=== PATIENT | male | born 1945 | race Hispanic/Latino ===

== ENCOUNTER → 2017-12-26 | Day surgery (SDC) | payer OTHER ==
[2017-12-25 14:27] LABS: BASOPHILS # (AUTO) 0.1 (0.0-0.1); BASOPHILS % 0.9 % (0.0-1.0); EOSINOPHILS # (AUTO) 0.3 (0.0-0.4); EOSINOPHILS % 3.3 % (0.0-6.0); HEMOGLOBIN 14.8 g/dL (14.0-18.0); LYMPHOCYTES # (AUTO) 1.4 (1.0-3.2); LYMPHOCYTES % 14.9 % (18.0-39.1); MEAN CORPUSCULAR HEMOGLOBIN 28.1 pg (28-32); MEAN CORPUSCULAR HGB CONC 32.9 g/dL (31-35); MEAN CORPUSCULAR VOLUME 85.6 fL (81-99); MONOCYTES # (AUTO) 0.8 (0.2-0.8); MONOCYTES % 8.5 % (4.4-11.3); NEUTROPHILS # (AUTO) 6.7 (2.1-6.9); NEUTROPHILS % 71.7 % (38.7-80.0); PLATELET COUNT 220 x10e3/uL (140-360); RED BLOOD COUNT 5.26 x10e6/uL (4.3-5.7); RED CELL DISTRIBUTION WIDTH 13.9 % (11.7-14.4)
[2017-12-25 14:34] LABS: INR 0.9
[2017-12-25 14:49] LABS: ALANINE AMINOTRANSFERASE 22 IU/L (0-55); ALBUMIN/GLOBULIN RATIO 1.3 (0.8-2.0); ALKALINE PHOSPHATASE 48 IU/L (40-150); ANION GAP 14.2 mmol/L (8-16); BLOOD UREA NITROGEN 15 mg/dL (7-26); BUN/CREATININE RATIO 14 (6-25); CARBON DIOXIDE 29 mmol/L (22-29); CHLORIDE 100 mmol/L (98-107); CHOL/HDL RATIO 5.4 (3.9-4.7); CHOLESTEROL 194 MD/DL (0-199); CREATININE, SERUM 1.07 mg/dL (0.72-1.25); EST GLOMERULAR FILTRATION RATE > 60 ML/MIN (60-); GLUCOSE 135 mg/dL (74-118); HDL CHOLESTEROL 36 MG/DL (40-60); LDL CHOLESTEROL 118 MG/DL (60-130); POTASSIUM 4.2 mmol/L (3.5-5.1); SODIUM 139 mmol/L (136-145); TRIGLYCERIDES 201 MG/DL (0-149)
[2017-12-26] VITALS (11 sets, daily range): BP systolic 123–158; BP diastolic 58–76
[~2017-12-26] MED LIST: ALPRAZOLAM 0.5 MG TAB ONE; ATORVASTATIN CA20 MG PO; CARVEDILOL12.5 MG PO; DIPHENHYDRAMINE HCL 25 MG CAP ONE; DOXEPIN; DOXEPIN HCL TOP; FENOFIBRATE145 MG PO; FENTANYL CITRATE/PF 100MCG/2 ML INJ ONE; GABAPENTIN300 MG PO; HEPARIN SOD (PORCINE) 1000 UNIT/ML 30ML ONE; HEPARIN SOD/SOD CHLORIDE 2,000 ML ONE; HYDROCHLOROTHIA25 MG PO; IOPAMIDOL 300MG/ML 100 ML INFUS..BTL IV ONE; LIDOCAINE HCL 1% LOCAL INJ 20 ML VIAL ONE; LISINOPRIL10 MG PO; METFORMIN HCL500 MG PO; MIDAZOLAM HCL 2 MG/2 ML VIAL ONE; NITROGLYCERIN/D5W 200 MCG/ML 250 ML ONE; SODIUM CHLORIDE 0.9% 1000ML 1,000 ML ONE; SYNTHROID100 MCG PO
--- NOTE | 2017-12-26 14:06 | Operative Report ---
DATE OF PROCEDURE: December 26, 2017 INDICATIONS 1. Chest pain. 2. Coronary artery disease. 3. Previous bypass. 4. Abnormal stress test with anterior ischemia. 5. Peripheral arterial disease with claudication. PROCEDURES PERFORMED 1. Left heart catheterization, selective coronary angiography. 2. Selective cannulation of 1 arterial and 2 venous bypass conduits. 3. Abdominal aortogram with aorta catheter placement. 4. Third-order catheter placement from the right femoral artery to the left superficial femoral artery and bilateral extremity angiograms. 5. Deployment of right groin Perclose closure device. COMPLICATIONS: None. RECOMMENDATIONS: Aggressive medical therapy. Access was obtained in the right femoral artery. A 6-Martiniquais sheath was placed. Diagnostic coronary angiogram revealed patent left main. Left anterior descending artery is completely occluded. Circumflex had 50% stenosis. Right coronary artery was completely occluded in its midportion after the region of a large acute marginal branch which supplied collaterals to the right posterior descending artery. Right posterior descending artery also had feeble collaterals from the circumflex system. Left internal mammary artery was widely patent. Left anterior descending artery saphenous vein bypass graft to obtuse marginal widely patent. Saphenous vein bypass graft to diagonal artery had moderate 50% stenosis. Right coronary bypass graft was not identified. LV end-diastolic pressure of 40. No gradient across the aortic valve on pullback. Abdominal aorta demonstrated patent iliacs, renal arteries and aorta. Selective catheter placement from the right femoral artery to the left superficial femoral artery was performed with mild peripheral arterial disease and 2-vessel runoff in both lower extremities. Right groin repaired using Perclose. Patient discharged home same day. Job#: [id number]
== END | disposition home or self-care (01) ==
LOC: CATH LAB 07:36
PROVIDERS: ATTEND Internal Medicine Interventional Cardiology
DX: I25.708 Atherosclerosis of coronary artery bypass graft(s), unspecified, with other forms of angina pectoris (principal); R94.39 Abnormal result of other cardiovascular function study; I70.213 Atherosclerosis of native arteries of extremities with intermittent claudication, bilateral legs; I10 Essential (primary) hypertension; Z95.1 Presence of aortocoronary bypass graft; E78.00 Pure hypercholesterolemia, unspecified; E13.8 Other specified diabetes mellitus with unspecified complications; E07.9 Disorder of thyroid, unspecified; Z01.812 Encounter for preprocedural laboratory examination; Z79.84 Long term (current) use of oral hypoglycemic drugs; Z68.39 Body mass index [BMI] 39.0-39.9, adult; Z82.49 Family history of ischemic heart disease and other diseases of the circulatory system
CPT/HCPCS: 36247; 36415; 75625; 75716; 80053; 80061; 85025; 85610; 93459; C1725; C1769 ×2; J1644; J2001; J2250; J7030; 36217; 93458; Q9967

== ENCOUNTER → 2019-11-28 | Day surgery (SDC) | payer MEDICARE, OTHER ==
[2019-11-25 10:40] LABS: BASOPHILS # (AUTO) 0.1 (0.0-0.1); BASOPHILS % 0.8 % (0.0-1.0); EOSINOPHILS # (AUTO) 0.4 (0.0-0.4); EOSINOPHILS % 5.8 % (0.0-6.0); HEMATOCRIT 44.4 % (38.2-49.6); HEMOGLOBIN 14.2 g/dL (14.0-18.0); LYMPHOCYTES # (AUTO) 0.9 (1.0-3.2); LYMPHOCYTES % 12.6 % (18.0-39.1); MEAN CORPUSCULAR VOLUME 87.4 fL (81-99); MONOCYTES # (AUTO) 0.5 (0.2-0.8); MONOCYTES % 6.9 % (4.4-11.3); NEUTROPHILS # (AUTO) 5.2 (2.1-6.9); NEUTROPHILS % 72.8 % (38.7-80.0); PLATELET COUNT 209 x10e3/uL (140-360); RED BLOOD COUNT 5.08 x10e6/uL (4.3-5.7); RED CELL DISTRIBUTION WIDTH 13.1 % (11.7-14.4)
[2019-11-25 10:56] LABS: ALANINE AMINOTRANSFERASE 19 IU/L (0-55); ALBUMIN 4.4 g/dL (3.5-5.0); ALBUMIN/GLOBULIN RATIO 1.7 (0.8-2.0); ALKALINE PHOSPHATASE 51 IU/L (40-150); ANION GAP 14.2 mmol/L (8-16); BLOOD UREA NITROGEN 16 mg/dL (7-26); BUN/CREATININE RATIO 14 (6-25); CARBON DIOXIDE 28 mmol/L (22-29); CHLORIDE 101 mmol/L (98-107); CREATININE, SERUM 1.11 mg/dL (0.72-1.25); EST GLOMERULAR FILTRATION RATE > 60 ML/MIN (60-); GLUCOSE 162 mg/dL (74-118); POTASSIUM 4.2 mmol/L (3.5-5.1); SODIUM 139 mmol/L (136-145)
[2019-11-28] VITALS (12 sets, daily range): BP systolic 112–167; BP diastolic 62–82
[~2019-11-28] VITALS: Ht 170.2 cm; Wt 105.7 kg
[~2019-11-28] MED LIST changes: +ASPIRIN 325 MG TAB ONE; +ASPIRIN EC81 MG PO; +CLOPIDOGREL75 MG PO; +CRESTOR10 MG PO; +FUROSEMIDE40 MG PO; -LIDOCAINE HCL 1% LOCAL INJ 20 ML VIAL ONE; +LIDOCAINE HCL 2% LOCAL 20 ML VIAL ONE; +PRASUGREL 10 MG TAB ONE; +RANOLAZINE ER1000 MG PO
--- NOTE | 2019-11-28 08:12 | NUR ---
0812am RECEIVING NOTE [facility] [employer]............................................................... Bedside report received from ROSE MARY [place]. Identifierx2. Alert oriented and appropriate, PERRLA, respirations even and unlabored to room air. Pulses x4 extremities equal and strong. Pedal pulses PT/DP x4 dopppler only and marked. Cap fill brisk < 3 sec. Hob down til 1000am and dc home. Skin warm and dry integrity appears D/I. IV 20g to left hand at 100cchr presents healthy w/o s/s of infiltration or complaint. Abdomen soft and supple. pt offered toileting, denies need to urinate or defecate. No personal affects with patient. Family at BS Pt and family verbalizes understanding of POC. Currently w/o complaint of pain or need.ds/rn
--- NOTE | 2019-11-28 10:00 | NUR ---
1000am sat up for dc home Noted plum size pressure held and Rex RN holding site at 1015 golf ball size hematoma pressing out. Notified Dr Ly per text and phone message, Currently awaiting return call from office staff at [place].No gross outward bleeding. Mild Back pin reported.Dr Ly verbally per phone response. Extend time one hour and may dc home. Vs stable ds/rn
--- NOTE | 2019-11-28 10:44 | NUR ---
1044 Hematoma pressed out No gross issues pain,pallor pressure or dysthymia. 40 min hold.July HOB at 1145 anddc homeat 12noon if no reoccurrence. ds/rn
--- NOTE | 2019-11-28 12:00 | NUR ---
1200N [employer] DISCHARGE NURSING NOTE Pt meets DC criteria. Rt groin assessed for s/s of complication and presence of hematoma. Skin warm, dry, no discolor, and pulses present. IV removed from left hand if. Distal tip appears intact. VS WNL. Pt denies pain, sob, or need at this time. Family at BS. Review of discharge paperwork and follow up instructions. verbalized understanding. Pt to wheelchair and transported to front of hospital. Transferred to private vehicle under own strength w/o incident with DC paperwork in hand. -cate/bhavna
--- NOTE | 2019-11-29 08:14 | Operative Report ---
DATE OF PROCEDURE: 11/28/2019 SURGEON: Martin Ly MD INDICATION: Peripheral arterial disease claudication. COMPLICATIONS: None. BLOOD LOSS: Minimal. RECOMMENDATIONS: Staged intervention in the right posterior tibial and superficial femoral arteries via right posterior tibial pedal access. PROCEDURES PERFORMED: 1. Ultrasound-guided access in the right femoral artery with sheath placement. 2. Abdominal aorta catheterization with abdominal aortogram. 3. Third-order catheter placement in the right femoral artery and left superficial femoral artery. 4. Bilateral lower extremity angiograms. 5. Angioplasty of the left femoral artery. 6. Stent placement to the right common iliac artery. 7. Deployment of right groin Perclose. DESCRIPTION OF PROCEDURE: Access obtained in the right femoral artery. Abdominal aortogram was performed to 80% stenosis to right common iliac artery. Left common iliac artery had calcification with mild disease. Femoral arteries are not well visualized. Runoff down the right leg demonstrated a 70% distal right femoral artery stenosis. Anterior tibial artery was occluded, right posterior tibial artery had 90% stenosis. The catheter was then advanced in the right femoral artery and the left superficial femoral artery, 70% stenosis of the left mid femoral artery with complete occlusion in the left peroneal artery. Two-vessel runoff. A decision was made to intervene on the right common iliac and left femoral arteries. The patient received intravenous heparin for anticoagulation. The lesions were crossed using a glidewire, drug-coated balloon angioplasty using a 6 mm balloon was performed in the left femoral artery with excellent end result, two vessel runoff. A single 8 x 17 mm Visi-Pro balloon expandable stent was deployed in the right common iliac artery at 12 atmospheres. Excellent end result, less than 10% residual stenosis. Right groin repaired using Perclose closure device. The patient discharged home. Martin Ly MD K[facility]/MODL /[id number]
== END | disposition home or self-care (01) ==
LOC: CATH LAB 06:01
PROVIDERS: ATTEND Internal Medicine Interventional Cardiology
DX: I70.211 Atherosclerosis of native arteries of extremities with intermittent claudication, right leg (principal); I25.10 Atherosclerotic heart disease of native coronary artery without angina pectoris; Z01.812 Encounter for preprocedural laboratory examination; Z11.59 Encounter for screening for other viral diseases; Z79.84 Long term (current) use of oral hypoglycemic drugs; Z79.82 Long term (current) use of aspirin; Z68.36 Body mass index [BMI] 36.0-36.9, adult
CPT/HCPCS: 36415; 37221; 37224; 75625; 75710; 76937; 80053; 85025; C1760; C1769 ×2; C1876; C1887 ×2; J1644; J2001; J2250; J3010; J7030; Q9967; U0002; 75630; 99152; 99153

== ENCOUNTER → 2019-12-24 | Day surgery (SDC) | payer MEDICARE, OTHER ==
[2019-12-19 09:40] LABS: BASOPHILS # (AUTO) 0.1 (0.0-0.1); BASOPHILS % 0.7 % (0.0-1.0); EOSINOPHILS # (AUTO) 0.4 (0.0-0.4); EOSINOPHILS % 5.3 % (0.0-6.0); HEMATOCRIT 43.1 % (38.2-49.6); HEMOGLOBIN 13.9 g/dL (14.0-18.0); LYMPHOCYTES % 13.9 % (18.0-39.1); MEAN CORPUSCULAR HEMOGLOBIN 28.3 pg (28-32); MEAN CORPUSCULAR HGB CONC 32.3 g/dL (31-35); MEAN CORPUSCULAR VOLUME 87.8 fL (81-99); MONOCYTES # (AUTO) 0.6 (0.2-0.8); MONOCYTES % 7.8 % (4.4-11.3); NEUTROPHILS # (AUTO) 5.3 (2.1-6.9); NEUTROPHILS % 71.6 % (38.7-80.0); PLATELET COUNT 196 x10e3/uL (140-360); RED BLOOD COUNT 4.91 x10e6/uL (4.3-5.7); RED CELL DISTRIBUTION WIDTH 13.1 % (11.7-14.4)
[2019-12-19 10:04] LABS: ALBUMIN 3.9 g/dL (3.5-5.0); ALBUMIN/GLOBULIN RATIO 1.4 (0.8-2.0); ANION GAP 13.3 mmol/L (8-16); CALCIUM 8.9 mg/dL (8.4-10.2); CREATININE, SERUM 1.42 mg/dL (0.72-1.25); POTASSIUM 4.3 mmol/L (3.5-5.1)
[2019-12-24] VITALS (13 sets, daily range): BP systolic 107–159; BP diastolic 54–80
[~2019-12-24] VITALS: Ht 170.2 cm; Wt 105.2 kg
[~2019-12-24] MED LIST changes: -ASPIRIN 325 MG TAB ONE; -HEPARIN SOD (PORCINE) 1000 UNIT/ML 30ML ONE; -NITROGLYCERIN/D5W 200 MCG/ML 250 ML ONE; -PRASUGREL 10 MG TAB ONE; +PROTAMINE SULFATE 10 MG/ML 5 ML VIAL ONE; +TYLENOL EXTRA500 MG PO
--- NOTE | 2019-12-24 12:45 | NUR ---
1245pReceived pt to room #9,bedside report received from Zbigniew BAZZI. Alert oriented and appropriate, PERRLA, respirations even and unlabored to room air. Pulses x4 extremities equal and strong. Pedal pulses PT/DP X4 Doppler Cap fill brisk < 3 sec. 20xx Rt TR band may decrease air from band at 1400pm Skin warm and dry integrity appears D/I IV 20g to left hand at 100cchr, presents healthy w/o s/s of infiltration or complaint. Abdomen soft and supple. pt offered toileting, denies need to urinate or defecate. No personal affects with patient. Family at BS Pt and family verbalizes understanding of POC. Currently w/o complaint of pain or need. ds/rn
--- NOTE | 2019-12-24 14:00 | NUR ---
1400p RADIAL Compression removal: Initial Cuff volume 20 cc 1400p -5 cc Removed No hematoma/bleeding noted with normal neurovascular function. 1415p -5cc Removed No hematoma/ bleeding noted with normal neurovascular function. 1430p -5cc Removed No hematoma/bleeding noted with normal neurovascular function. 1445p -5cc Removed No hematoma/ bleeding noted with normal neurovascular function. Air removal completed. Stasis achieved sterile 2x2,Tegaderm, Coban dressing No hematoma, bleeding noted with normal neurovascular function. . Pt instructed on POC. Nino/Radha Addendum: 12/24/19 at 204 by Elsa Phillips RN 1400 CORRECTION Right TR PEDAL BAND
--- NOTE | 2019-12-24 14:44 | Operative Report ---
DATE OF PROCEDURE: 12/24/2019 SURGEON: Martin Ly MD INDICATIONS: Claudication and staged intervention for peripheral arterial disease. PROCEDURES PERFORMED: 1. Ultrasound-guided access in the right posterior tibial artery with sheath placement. 2. Unilateral extremity angiogram in the right lower extremity with third-order catheter placement. 3. Atherectomy and angioplasty of the right posterior tibial artery. 4. Secondary thrombectomy of the right posterior tibial artery. 5. Conscious sedation, 65 minutes. 6. Placement of right foot TR band. COMPLICATIONS: None. BLOOD LOSS: Minimal. RECOMMENDATIONS: Dual antiplatelet therapy for life. DESCRIPTION OF PROCEDURE: Access was obtained in the right posterior tibial artery using ultrasound guidance with 6-Citizen [place] sheath was placed. The patient received 48275 units of intra-arterial heparin for anticoagulation. Sheath was advanced to the common femoral/iliac artery and the right leg with third-order sheath placement. Angiography was demonstrated 90% stenosis of the proximal right posterior tibial artery. The lesion was crossed using run-through wire. Directional atherectomy was performed using Hawk One device. Large amounts of visible thrombus for which manual aspiration thrombectomy from the sheath was required. Balloon angioplasty with 3.5 mm balloon resulted in excellent single-vessel runoff, less than 10% residual stenosis. No complications. Wire and sheath were removed. TR band applied. The patient discharged home same day. MD DEANDRE Mcnally/MODL /[id number]
--- NOTE | 2019-12-24 15:15 | NUR ---
1515p Pt meets DC criteria. Rt Tr band assessed for s/s of complication and presence of hematoma. Skin warm, dry, no discolor, and pulses present. IV removed from left hand. Distal tip appears intact. VS WNL. Pt denies pain, sob, or need at this time. Family at Review of discharge paperwork and follow up instructions. verbalized understanding. Pt to wheelchair and transported to front of hospital. Transferred to private vehicle under own strength w/o incident with DC paperwork in hand. - ds/rn
== END | disposition home or self-care (01) ==
LOC: CATH LAB 09:26
PROVIDERS: ATTEND Internal Medicine Interventional Cardiology
DX: I70.211 Atherosclerosis of native arteries of extremities with intermittent claudication, right leg (principal); I10 Essential (primary) hypertension; Z01.812 Encounter for preprocedural laboratory examination; Z11.59 Encounter for screening for other viral diseases; Z79.02 Long term (current) use of antithrombotics/antiplatelets; Z79.82 Long term (current) use of aspirin
CPT/HCPCS: 36415 ×2; 37186; 37229; 80053; 82948; 85025; C1714; C1769 ×2; J2001; J2250; J2720; J3010; J7030; Q9967; U0002; 36247; 75710; 99152